=== PATIENT | female | born 1960 | race Caucasian/White ===

== ENCOUNTER 2024-07-10 13:22 | Outpatient (CLI) | payer OTHER, SELFPAY ==
--- NOTE | 2024-07-10 13:30 | XR_ITS ---
Patient: ROSIBEL ENGLISH Facility:?[facility] Patient ID:?[id number] Site Patient [id number]:?[id number] Site :?[id number] Study:?DEXA-Bone Density Jaswinder/ brett hips-07/11/2024 9:34:25 AM Ordering Physician:?Chas Klein Final Report: XR DXA Bone Mineral Density (BMD) Reason for exam: Neuroforaminal stenosis of cervical spine. WC approved. Current height (in): 62. Weight (lb): 188. Menopause age: 62. Ethnicity: White. 1. Have you had a previous hip or vertebral fracture? No. 2. Have you had any fractures during your adult life which did not result from significant trauma (e.g., auto accident)? No. 3. Did either of your parents have a hip fracture? Yes. 4. Do you smoke? No. 5. Have you ever taken Glucocorticoids? No. 6. Do you have rheumatoid arthritis? No. 7. Do you have secondary osteoporosis? No. 8. Do you drink 3 or more alcoholic drinks per day? No. 9. Are you being treated for osteoporosis? No. 10. Have you ever taken any of the following medications: Actonel, Evista, Fosamax, Miacalcin, Reclast, Boniva, Forteo, HRT (i.e. estrogen/hormone therapy), Protelos, Prolia, Vitamin D, Calcium, other ? please specify. ANSWER: Yes, vitamin D, calcium. 11. Do you have any of the following medical conditions: Anorexia or bulimia, asthma or emphysema, end stage renal disease, hyperparathyroidism, any seizure disorders, cancer, inflammatory bowel diseases, hysterectomy, other ? please specify. ANSWER: Yes, asthma or emphysema. 12. What was your maximum height (inches)? 64. 13. Do you perform weight bearing exercise regularly? No. 14. Do you regularly consume dairy products? Yes. 15. Do you drink caffeinated beverages? Yes. 16. At what age did your period start? 17. 17. Are you premenopausal? No. 18. How many full term pregnancies have you had? 2. 19. Have you ever missed your period for more than 6 months in a row (not including or menopause)? No. TECHNIQUE: Bone mineral density study was performed using the [employer]. FINDINGS: The results of the study expressed as bone mineral density (BMD) are as follows: Lumbar spine L1, L2, L4: BMD: 1.326 g/cm2. T-score: 2.7. Z-score: 4.2. Neck Left: BMD: 0.775 g/cm2. T-score: -0.7. Z-score: 0.7. Right: BMD: 0.847 g/cm2. T-score: -0.0. Z-score: 1.4. Total Left: BMD: 0.969 g/cm2. T-score: 0.2. Z-score: 1.3. Right: BMD: 1.057 g/cm2. T-score: 0.9. Z-score: 2.0. IMPRESSION: Normal bone density. Ar Tomlin M.D. Diagnostic Radiologist [email or web address] MICHAEL/gregorio / bM/Dictated by: Ar Tomlin MD @ 07/11/2024 9:42:00 AM Signed by:?Ar Tomlin MD @07/11/2024 8:21:08 PM (Electronic Signature)
== END 2024-07-10 13:23 | disposition home or self-care (01) ==
PROVIDERS: PCP Family Medicine; Visit Provider Orthopaedic Surgery
DX: M48.02 Spinal stenosis, cervical region (principal); M54.12 Radiculopathy, cervical region; M81.0 Age-related osteoporosis without current pathological fracture
CPT/HCPCS: 77080